=== PATIENT | female | born 1995 | race Hispanic/Latino ===

== ENCOUNTER 2022-06-03 20:22 | Emergency (ER) | payer BC, OTHER ==
[~2022-06-03] VITALS: Ht 167.6 cm; Wt 72.6 kg
[2022-06-03] MEDS ORDERED: BACITRACIN ZINC 0.9GM TP ONE (22:02)
[2022-06-03 22:12] VITALS: BP 129/62
== END 2022-06-03 22:12 | disposition home or self-care (01) ==
LOC: FSED 20:38
DX: O26.892 Other specified pregnancy related conditions, second trimester (principal); T23.111A Burn of first degree of right thumb (nail), initial encounter; W22.11XA Striking against or struck by driver side automobile airbag, initial encounter; V43.52XA Car driver injured in collision with other type car in traffic accident, initial encounter; Y93.89 Activity, other specified; Y92.411 Interstate highway as the place of occurrence of the external cause; Z3A.18 18 weeks gestation of pregnancy
CPT/HCPCS: 99282